=== PATIENT | male | born 1970 | race Two or more races ===

== ENCOUNTER 2023-10-15 11:30 | Emergency (ER) | payer OTHER ==
[~2023-10-15] VITALS: Ht 165.1 cm; Wt 61.8 kg
[2023-10-15 12:19] LABS: Basophils # (auto) 0 10 ^3/uL (0-0.2); Basophils % (auto) 0.3 % (0.0-2.0); Eosinophils # (auto) 0 10 ^3/uL (0-0.8); Eosinophils % (auto) 0.6 % (0.0-7.0); Hemoglobin 15.7 g/dL (13.5-17.5); Lymphocytes # (auto) 2.2 10 ^3/uL (0.4-5.4); Lymphocytes % (auto) 26.2 % (10.0-50.0); Mean Corpuscular Hemoglobin 28.7 pg (28.0-32.0); Mean Corpuscular Hgb Conc. 33.4 g/dL (32.0-36.0); Monocytes # (auto) 0.6 10 ^3/uL (0-1.3); Monocytes % (auto) 6.9 % (0.0-12.0); Neutrophils # (auto) 5.6 10 ^3/uL (1.6-8.6); Nucleated Red Blood Cells % 0.1 %; Red Blood Cells 5.46 10^6/uL (4.5-5.90); Red Cell Distribution Width 13.6 % (11.8-14.3); White Blood Cell 8.4 10^3/uL (4.4-10.8)
[2023-10-15 12:42] LABS: Alanine Aminotransferase 33 U/L (7-40); Albumin 4.5 g/dL (3.2-4.8); Alkaline Phosphatase 56 U/L (46-116); Anion Gap 7 (5-15); Aspartate Aminotransferase 13 U/L (13-40); BUN/Creatinine Ratio 18.9 (10.0-20.0); Blood Urea Nitrogen 17 mg/dL (9-23); Calcium 9.9 mg/dL (8.7-10.4); Carbon Dioxide 26 mmol/L (20-30); Chloride 106 mmol/L (98-107); Glucose 95 mg/dL (74-106); Magnesium 1.9 mg/dL (1.6-2.6); Potassium 4.5 mmol/L (3.5-5.1); Sodium 139 mmol/L (136-145)
[2023-10-15 12:43] LABS: Bilirubin, Total 0.5 mg/dL (0.2-1.0); Total Protein 6.7 g/dL (5.7-8.2)
[2023-10-15 12:51] LABS: INR 1.08 (0.9-1.15); Partial Thromboplastin Time 29.6 SEC (24.5-34.5); Prothrombin Time 11.4 sec (9.3-11.8)
[2023-10-15] MEDS ORDERED: CIPR-173 PO (13:58)
[2023-10-15] MEDS ORDERED: CETI10CA PO (13:58)
[2023-10-15] MEDS ORDERED: METR-344 PO (13:58)
[2023-10-15] MEDS: SODIUM CHLORIDE 0.9% 1,000 ML IV ONE (14:36)
[2023-10-15 15:24] VITALS: BP 147/91; TEMP 97.6
[2023-10-15 15:26] VITALS: PULSE 73; RESP 19; O2SAT 98
== END 2023-10-15 15:30 | disposition home or self-care (01) ==
LOC: ER 11:30
DX: R07.89 Other chest pain (principal); R19.7 Diarrhea, unspecified; L50.9 Urticaria, unspecified; I10 Essential (primary) hypertension; E78.5 Hyperlipidemia, unspecified; Z88.8 Allergy status to other drugs, medicaments and biological substances
CPT/HCPCS: 36415; 71045; 74176; 80053; 83735; 83880; 84484; 85025; 85610; 85730; 93005; 96360; 99285; J7030